=== PATIENT | male | born 2005 | race Caucasian/White ===

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

== ENCOUNTER 2025-01-17 08:19 | Emergency (ER) | payer OTHER ==
[2025-01-17 08:38] VITALS: BP 125/78; PULSE 77; RESP 18; TEMP 98.5; BMI 22.1
[2025-01-17] MEDS ORDERED: LIDOCAINE 5% TOPICAL PATCH ONE (09:19)
[2025-01-17] MEDS ORDERED: IBUPROFEN 600 MG TABLET (FP) PO ONE (09:22)
[2025-01-17] MEDS: LIDOCAINE 5% TOPICAL PATCH TP ONE (09:40)
[2025-01-17] MEDS: IBUPROFEN 600 MG TABLET (FP) PO ONE (09:40)
[2025-01-17] MEDS ORDERED: LIDOCAINE PATCH REMOVAL MC ONE (22:00)
== END 2025-01-17 09:40 | disposition home or self-care (01) ==
LOC: JERFT 08:19
DX: M62.838 Other muscle spasm (principal); M54.2 Cervicalgia
CPT/HCPCS: 99283-25